=== PATIENT | female | born 1985 | race Caucasian/White ===

== ENCOUNTER 2017-05-06 11:17 | Emergency (ER) | payer OTHER ==
[~2017-05-06] VITALS: Ht 162.6 cm; Wt 99.9 kg
[2017-05-06] MEDS ORDERED: AUGMENTIN875 MG PO (12:41)
[2017-05-06] MEDS ORDERED: VENTOLIN HFA18 GM IH (12:42)
[2017-05-06 12:55] VITALS: BP 105/66
== END 2017-05-06 12:56 | disposition home or self-care (01) ==
LOC: EME 11:17
DX: J06.9 Acute upper respiratory infection, unspecified (principal); H66.91 Otitis media, unspecified, right ear; K21.9 Gastro-esophageal reflux disease without esophagitis; F17.200 Nicotine dependence, unspecified, uncomplicated
CPT/HCPCS: 71020; 94640; 99281; 99284; J1885

== ENCOUNTER 2017-08-17 15:45 | Emergency (ER) | payer OTHER ==
[~2017-08-17] VITALS: Ht 162.6 cm; Wt 96.8 kg
[~2017-08-17 15:45] MED LIST: AUGMENTIN875 MG PO; VENTOLIN HFA18 GM IH
[2017-08-17 16:27] LABS: HEMATOCRIT 43.7 % (36.0-46.0); HEMOGLOBIN 15.4 G/DL (11.9-15.5); MCH 30.3 PG (29.0-34.0); MCHC 35.2 G/DL (30.0-36.0); PLATELET COUNT 226 K/uL (156-360); RBC DIS.WIDTH-CV 12.7 % (11.8-14.6); RBC DIS.WIDTH-SD 39.8 % (39-53); RED BLOOD COUNT 5.08 M/uL (3.80-5.20); WHITE BLOOD COUNT 6.4 K/uL (4.1-10.2)
[2017-08-17 16:34] LABS: ALBUMIN 4.3 g/dL (3.2-4.8); CHLORIDE 100 mEq/L (99-109); POTASSIUM 3.9 mEq/L (3.7-5.4); SODIUM 137 mEq/L (136-147)
[2017-08-17 16:36] LABS: GLUCOSE 98 mg/dL (70-99)
[2017-08-17 16:37] LABS: TOTAL PROTEIN 7.2 g/dL (6.4-8.3)
[2017-08-17 16:38] LABS: TOTAL BILIRUBIN 0.4 mg/dL (0.0-1.0)
[2017-08-17 16:40] LABS: ALKALINE PHOSPHATASE 75 IU/L (3-129); CREATININE 0.6 mg/dL (0.6-1.3); GFR ESTIMATE (CALCULATED) > 59 mL/min/
[2017-08-17 16:41] LABS: UREA NITROGEN (BUN) 11 mg/dL (9-23)
[2017-08-17 16:42] LABS: AST (GOT) 28 IU/L (2-34)
[2017-08-17 16:43] LABS: ALT (GPT) 23 IU/L (3-49)
[2017-08-17 16:50] LABS: QUANTITATIVE HCG < 4.0 MIU/ML
[2017-08-17] MEDS ORDERED: EFFEXOR75 MG PO (17:06)
[2017-08-17] MEDS ORDERED: PRILOSEC OTC20 MG PO (17:06)
[2017-08-17 17:11] LABS: APPEARANCE SL.HAZY ((CLEAR)); BILIRUBIN SMALL; BLOOD NEGATIVE; COLOR YELLOW ((YELLOW)); GLUCOSE (STRIP) NEGATIVE; KETONES 80; LEUKOCYTES NEGATIVE; NITRITE NEGATIVE; PROTEIN (STRIP) 100; SPECIFIC GRAVITY 1.026 (1.000-1.030)
[2017-08-17 17:21] LABS: BACTERIA RARE /HPF; CALCIUM OXALATE CRYSTALS 1+ /HPF; EPITHELIAL CELLS 1+ /HPF; MUCUS TRACE /LPF; RED BLOOD CELLS 0-5 /HPF (0-5); UCUL ADDED? NO; WHITE BLOOD CELLS 0-5 /HPF (0-5)
[2017-08-17 17:50] LABS: D-DIMER ELISA < 150.00 ng/mLDDU (<230)
[2017-08-17 17:52] LABS: LIPASE 5 U/L (1.0-51.0)
[2017-08-17] MEDS ORDERED: ZOFRAN4 MG PO (18:43)
[2017-08-17] MEDS ORDERED: OMEPRAZOLE40 M1 PO (18:43)
[2017-08-17] MEDS ORDERED: CARAFATE1 GM PO (18:43)
[2017-08-17 19:21] VITALS: BP 126/78
== END 2017-08-17 19:28 | disposition home or self-care (01) ==
LOC: EME 15:45
PROVIDERS: Physician Assistant
DX: K92.0 Hematemesis (principal); R10.13 Epigastric pain; R94.31 Abnormal electrocardiogram [ECG] [EKG]; K21.9 Gastro-esophageal reflux disease without esophagitis; F17.200 Nicotine dependence, unspecified, uncomplicated; Z90.49 Acquired absence of other specified parts of digestive tract
CPT/HCPCS: 71046; 80053; 81003; 83690; 84702; 85027; 85379; 93005; 99281; 99285; J2405; J7030

== ENCOUNTER 2017-10-27 12:37 | Emergency (ER) | payer OTHER ==
[~2017-10-27] VITALS: Ht 162.6 cm; Wt 98.5 kg
[~2017-10-27 12:37] MED LIST changes: +CARAFATE1 GM PO; +EFFEXOR75 MG PO; +OMEPRAZOLE40 M1 PO; +PRILOSEC OTC20 MG PO; +ZOFRAN4 MG PO
[2017-10-27] MEDS ORDERED: PEN-VEE K,VEET500 MG PO (13:34)
[2017-10-27] MEDS ORDERED: NAPROSYN500 MG PO (13:34)
[2017-10-27 14:02] VITALS: BP 107/77
== END 2017-10-27 14:02 | disposition home or self-care (01) ==
LOC: EME 12:37
DX: K04.7 Periapical abscess without sinus (principal); K02.9 Dental caries, unspecified; K21.9 Gastro-esophageal reflux disease without esophagitis; F41.9 Anxiety disorder, unspecified; F32.9 Major depressive disorder, single episode, unspecified; F17.200 Nicotine dependence, unspecified, uncomplicated
CPT/HCPCS: 99281; 99283; J1885

== ENCOUNTER 2018-01-04 15:42 | Emergency (ER) | payer OTHER ==
[~2018-01-04] VITALS: Ht 162.6 cm; Wt 94.8 kg
[~2018-01-04 15:42] MED LIST changes: +NAPROSYN500 MG PO; +PEN-VEE K,VEET500 MG PO
[2018-01-04 16:30] LABS: APPEARANCE SL.HAZY ((CLEAR)); BILIRUBIN NEGATIVE; BLOOD NEGATIVE; COLOR YELLOW ((YELLOW)); GLUCOSE (STRIP) NEGATIVE; KETONES NEGATIVE; LEUKOCYTES TRACE; NITRITE NEGATIVE; PROTEIN (STRIP) 30; SPECIFIC GRAVITY 1.019 (1.000-1.030)
[2018-01-04 16:34] LABS: BACTERIA NONE SEEN /HPF; EPITHELIAL CELLS 2+ /HPF; MUCUS TRACE /LPF; RED BLOOD CELLS 0-5 /HPF (0-5); UCUL ADDED? YES; WHITE BLOOD CELLS 15-20 /HPF (0-5)
[2018-01-04] MEDS ORDERED: XANAX1 MG PO (16:46)
[2018-01-04] MEDS ORDERED: KEFLEX500 MG PO (16:46)
[2018-01-04] MEDS ORDERED: TORADOL10 MG PO (16:46)
[2018-01-04 16:47] LABS: SOURCE URINE
[2018-01-04 17:50] VITALS: BP 107/67
[2018-01-05 19:46] LABS: CHLAMYDIA TRACHOMATIS NEGATIVE; NEISSERIA GONORRHOEAE NEGATIVE
== END 2018-01-04 17:52 | disposition home or self-care (01) ==
LOC: EME 15:42
PROVIDERS: Physician Assistant
DX: R41.9 Unspecified symptoms and signs involving cognitive functions and awareness (principal); R30.0 Dysuria; F17.200 Nicotine dependence, unspecified, uncomplicated
CPT/HCPCS: 81003; 87086; 87491; 87591; 99281; 99285; J1885